=== PATIENT | male | born 1985 | race Caucasian/White ===

== ENCOUNTER → 2023-08-05 08:50 | Outpatient (REF) | payer BC, SELFPAY | LOC: RAD 08:50 | PROVIDERS: ATTENDING PHYSICIAN Internal Medicine Cardiovascular Disease | DX: R93.1 Abnormal findings on diagnostic imaging of heart and coronary circulation (principal) | CPT/HCPCS: 75574; Q9967 ==

== ENCOUNTER → 2023-11-11 12:43 | Outpatient (REF) | payer BC, SELFPAY | LOC: RAD 12:43 | PROVIDERS: ATTENDING PHYSICIAN Nurse Practitioner Family | DX: M25.512 Pain in left shoulder (principal) | CPT/HCPCS: 73030 ==

== ENCOUNTER → 2024-03-04 07:15 | Outpatient (REF) | payer BC, SELFPAY | LOC: MRI 07:15 | PROVIDERS: ATTENDING PHYSICIAN Nurse Practitioner Family | DX: S46.002D Unspecified injury of muscle(s) and tendon(s) of the rotator cuff of left shoulder, subsequent encounter (principal) | CPT/HCPCS: 73221 ==

== ENCOUNTER 2024-10-13 05:43 | Day surgery (SDC) | payer BC, SELFPAY ==
[2024-10-13] VITALS (7 sets, daily range): BP systolic 108–136; BP diastolic 64–84; BMI 26.3
[2024-10-13 06:23] LABS: Glucose - Point of Care 109 mg/dl (70-99)
[2024-10-13] MEDS: NORMOSOL-R/PLASMALYTE-A 1000 IV (06:23)
[2024-10-13 07:55] LABS: Glucose - Point of Care 109 mg/dl (70-99)
== END 2024-10-13 09:30 | disposition home or self-care (01) ==
LOC: SDS 05:43
PROVIDERS: ATTENDING PHYSICIAN Specialist
DX: Z30.2 Encounter for sterilization (principal)
CPT/HCPCS: 55250; 82962; 88302

== ENCOUNTER → 2025-03-26 08:12 | Outpatient (REF) | payer BC, SELFPAY | LOC: RCS 08:12 | PROVIDERS: ATTENDING PHYSICIAN Internal Medicine Cardiovascular Disease; FAMILY PHYSICIAN Internal Medicine | DX: I25.10 Atherosclerotic heart disease of native coronary artery without angina pectoris (principal) | CPT/HCPCS: 93017; 93350 ==